=== PATIENT | male | born 1980 | race African-American/Black ===

== ENCOUNTER 2017-10-01 12:33 | Emergency (ER) | payer OTHER ==
[~2017-10-01] VITALS: Ht 195.6 cm; Wt 108.9 kg
[~2017-10-01 12:33] MED LIST: ACETAMINOPHEN325 M1 PO; ACID CONTROL20 MG PO; ADVIL200 M3 PO; FLEXERIL PO; IBUPROFEN 800800 MG PO; KEFLEX500 MG PO; NAPROSYN500 MG PO; NOHOMEMEDICATIONS; NORCO 5-325 TA1 EACH PO; PERCOCET 5-3251 EACH PO
[2017-10-01] MEDS ORDERED: IBUPROFEN 600600 M1 PO (13:48)
== END 2017-10-01 14:08 | disposition home or self-care (01) ==
LOC: ER 12:33
DX: M79.645 Pain in left finger(s) (principal)

== ENCOUNTER 2020-04-16 20:38 | Emergency (ER) | payer BC, OTHER ==
[~2020-04-16] VITALS: Ht 195.6 cm; Wt 115.7 kg
[~2020-04-16 20:38] MED LIST changes: +IBUPROFEN 600600 M1 PO
[2020-04-16] MEDS ORDERED: TRAMADOL 50 MG50 MG PO ×2 (21:59→22:18)
[2020-04-16] MEDS ORDERED: NAPROSYN500 MG PO (21:59)
[2020-04-16] MEDS ORDERED: NORFLEX100 MG PO (21:59)
[2020-04-16 22:09] VITALS: BP 144/90
== END 2020-04-16 22:09 | disposition home or self-care (01) ==
LOC: ER 20:38
DX: S16.1XXA Strain of muscle, fascia and tendon at neck level, initial encounter (principal); S30.0XXA Contusion of lower back and pelvis, initial encounter; K21.9 Gastro-esophageal reflux disease without esophagitis; Z87.891 Personal history of nicotine dependence; Z79.899 Other long term (current) drug therapy; W01.0XXA Fall on same level from slipping, tripping and stumbling without subsequent striking against object, initial encounter; Y93.89 Activity, other specified; Y92.89 Other specified places as the place of occurrence of the external cause; Y99.8 Other external cause status

== ENCOUNTER 2020-05-07 16:52 | Emergency (ER) | payer BC, OTHER ==
[~2020-05-07] VITALS: Ht 195.6 cm; Wt 115.7 kg
[~2020-05-07 16:52] MED LIST changes: +NORFLEX100 MG PO; +TRAMADOL 50 MG50 MG PO
[2020-05-07 16:56] VITALS: BP 147/85
[2020-05-07 17:22] LABS: ABSOLUTE NEUTROPHILS 4.9 thou/uL (1.4-8.2); BASOPHILS 0.7 % (0.0-2.0); EOSINOPHILS 6.2 % (0.0-3.0); HEMATOCRIT 42.3 % (42.0-52.0); HEMOGLOBIN 14.6 gm/dL (14.0-18.0); LYMPHOCYTES 32.4 % (24.0-44.0); MCH 29.2 pg (26.0-34.0); MCHC 34.6 g/dL (28.0-37.0); MCV 84.4 fL (80.0-100.0); PLATELET COUNT 230 thou/uL (150-400); POLYS 51.7 % (36.0-66.0); RBC 5.02 mil/uL (4.50-6.00); RDW 14.8 % (10.5-14.5); WBC 9.4 thou/uL (4.0-11.0)
[2020-05-07 17:38] LABS: CALCIUM 9.2 mg/dL (8.5-10.1); CREATININE 1.3 mg/dL (0.7-1.3); POTASSIUM 4.4 mmol/L (3.5-5.1)
[2020-05-07 17:41] LABS: MAGNESIUM 2.2 mg/dL (1.8-2.4)
[2020-05-07 17:42] LABS: ALBUMIN 3.9 g/dL (3.4-5.0); TOTAL BILIRUBIN 0.5 mg/dL (0.2-1.0)
[2020-05-07] MEDS ORDERED: NEURONTIN300 MG PO (18:15)
== END 2020-05-07 18:51 | disposition home or self-care (01) ==
LOC: ER 16:52
PROVIDERS: Physician Assistant
DX: M79.671 Pain in right foot (principal); M79.672 Pain in left foot; M79.89 Other specified soft tissue disorders; R20.0 Anesthesia of skin; R20.2 Paresthesia of skin; K21.9 Gastro-esophageal reflux disease without esophagitis; Z98.890 Other specified postprocedural states; Z79.899 Other long term (current) drug therapy

== ENCOUNTER 2020-09-30 17:17 | Emergency (ER) | payer BC, OTHER ==
[~2020-09-30] VITALS: Ht 195.6 cm; Wt 117.9 kg
[~2020-09-30 17:17] MED LIST changes: +NEURONTIN300 MG PO
[2020-09-30] MEDS ORDERED: PREDNISONE 10 M10 MG PO (19:16)
[2020-09-30] MEDS ORDERED: NORFLEX100 MG PO (19:16)
[2020-09-30 19:23] VITALS: BP 121/83
== END 2020-09-30 19:01 | disposition home or self-care (01) ==
LOC: ER 17:17
DX: M54.12 Radiculopathy, cervical region (principal); K21.9 Gastro-esophageal reflux disease without esophagitis